=== PATIENT | female | born 1940 | race Caucasian/White ===

== ENCOUNTER 2018-01-21 08:21 | Day surgery (SDC) | payer MEDICARE, OTHER ==
[~2018-01-21] VITALS: Ht 157.5 cm; Wt 50.9 kg
[2018-01-21 08:30] VITALS: BP 169/98
[2018-01-21] MEDS ORDERED: fentaNYL/PF 50MCG/1 ML 2ML syringe ONE (08:32)
[2018-01-21] MEDS ORDERED: MIDAZolam 5mg/5ml vial ONE (08:32)
[2018-01-21] MEDS ORDERED: REM100I IV (08:43)
[2018-01-21 10:14] VITALS: BP 114/59
[2018-01-21 10:24] VITALS: BP 116/58
[2018-01-21 10:34] VITALS: BP 122/60
[2018-01-21 10:44] VITALS: BP 127/68
== END 2018-01-21 10:47 | disposition home or self-care (01) ==
LOC: GI LAB 08:21
PROVIDERS: ATTEND Specialist
DX: Z12.11 Encounter for screening for malignant neoplasm of colon (principal); D12.0 Benign neoplasm of cecum; D12.4 Benign neoplasm of descending colon; K57.30 Diverticulosis of large intestine without perforation or abscess without bleeding; K63.89 Other specified diseases of intestine; M06.9 Rheumatoid arthritis, unspecified; Z86.010 Personal history of colon polyps; Z88.2 Allergy status to sulfonamides; Z88.1 Allergy status to other antibiotic agents; Z72.89 Other problems related to lifestyle; Z79.899 Other long term (current) drug therapy; Z98.890 Other specified postprocedural states
CPT/HCPCS: 45380; 45385; 99153; G0500; J2250; J3010; J7030; 88305; A4620

== ENCOUNTER 2024-04-27 18:01 | Emergency (ER) | payer MEDICARE ==
[~2024-04-27] VITALS: Ht 157.5 cm; Wt 49.5 kg
[~2024-04-27 18:01] MED LIST: REM100I IV
[2024-04-28 04:09] VITALS: BP 145/81; PULSE 70; RESP 14; TEMP 97.8; O2SAT 95
== END 2024-04-28 04:09 | disposition home or self-care (01) ==
LOC: ER 18:02
DX: R09.A2 Foreign body sensation, throat (principal); T17.228A Food in pharynx causing other injury, initial encounter; Z88.2 Allergy status to sulfonamides; Z88.1 Allergy status to other antibiotic agents; Z79.899 Other long term (current) drug therapy
CPT/HCPCS: 70360; 99281; 99283